=== PATIENT | male | born 1935 | race Caucasian/White ===

== ENCOUNTER → 2017-04-10 | Day surgery (SDC) | payer OTHER ==
[~2017-04-10] VITALS: Ht 177.8 cm; Wt 117.9 kg
[~2017-04-10] MED LIST: ASPIRIN81 M1 PO; COZAAR25 M1 PO; JANUMET 500 MG-1 TAB PO; SYNTHROID RP0.1 MG PO; ZOCOR40 MG PO
--- NOTE | ~2017-04-10 | O ---
[place], [place] OPERATIVE NOTE NAME: WALKER MAXWELL UNIT #: [id number] ROOM: DOCTOR: SASKIA VALENTE MD BIRTHDATE: [birth year] DOS: 04/10/2017 PREOPERATIVE DIAGNOSIS: Cataract, right eye. POSTOPERATIVE DIAGNOSIS: Cataract, right eye. OPERATION: Extracapsular cataract extraction by phacoemulsification with posterior chamber intraocular lens implantation, right eye. ANESTHESIA: Monitored standby. OPERATIVE FINDINGS AND PROCEDURE: 2% Xylocaine topical anesthetic gel was applied to the eye in the preop area. The patient was taken to the operating room and prepped and draped in the standard fashion for sterile intraocular surgery. A time out procedure was performed verifying correct patient, correct site and corrects lens with Suzy Valente M.D. The operating microscope was swung into position and the lid speculum was inserted. Using a Nita paracentesis blade, a paracentesis was made through clear cornea. Viscoelastic was used to fill the anterior chamber. Using a metal keratome a 2.4 mm self-sealing clear corneal cataract incision was made temporally at the limbus. Using a pre-bent 25 gauge cystotome needle, a standard continuous curvilinear capsulorrhexis was performed. The anterior capsule was removed with forceps. The lens nucleus was hydrodissected and phacoemulsified in the posterior chamber. Cortical material was removed with the irrigation aspiration hand piece and the posterior capsule was then polished with a curet under irrigation. The posterior chamber and capsular bag were filled with viscoelastic. A posterior chamber intraocular lens manufactured by: [employer], Model #[id number], and 16.0 diopters in strength were then inserted into the posterior chamber and within the capsular bag using the lens cartridge and injector system. Viscoelastic was removed using the irrigation aspiration handpiece. The anterior chamber was filled with balanced salt solution through the paracentesis. Both the paracentesis site and cataract incisions were hydrated with BSS and verified to be water-tight and self-sealing. Cefuroxime 1 mg/0.1 mL was injected into the anterior chamber through the paracentesis site. The incision checked to be water-tight using a Weck-Dawn sponge. The integrity of the cataract wound and ocular tension were checked. Lid speculum and drapes were removed. The patient was transferred from the operating room to the recovery room in satisfactory condition. [place], [place] OPERATIVE NOTE NAME: WALKER MAXWELL UNIT #: [id number] ROOM: DOCTOR: SASKIA VALENTE MD BIRTHDATE: [birth year] SASKIA VALENTE MD CM:OPRECORD:OPERATIVE NOTE [id number] SASKIA VALENTE MD 04/10/17 0825 interface
[2017-04-10 07:25] VITALS: BP 135/70
[2017-04-10 07:54] VITALS: BP 140/74
[2017-04-10 08:09] VITALS: BP 126/73
[2017-04-10 08:24] VITALS: BP 144/76
== END | disposition home or self-care (01) ==
LOC: SDC 04-04 13:15
DX: H26.9 Unspecified cataract (principal); I10 Essential (primary) hypertension; E03.9 Hypothyroidism, unspecified; R32 Unspecified urinary incontinence; E11.9 Type 2 diabetes mellitus without complications; E78.5 Hyperlipidemia, unspecified; Z85.46 Personal history of malignant neoplasm of prostate; Z79.899 Other long term (current) drug therapy; E66.9 Obesity, unspecified; Z90.79 Acquired absence of other genital organ(s); Z68.37 Body mass index [BMI] 37.0-37.9, adult

== ENCOUNTER → 2017-05-08 | Day surgery (SDC) | payer OTHER ==
[~2017-05-08] VITALS: Ht 177.8 cm; Wt 117.9 kg
--- NOTE | ~2017-05-08 | WILSON ---
[place], [place] CATARACT EXTRACTION [facility]LL [id number] UNIT #: [id number] ROOM: DOCTOR: SASKIA RICHARDSON MD DATE: 05/08/17 PREOPERATIVE DIAGNOSIS: Cataract, left eye. POSTOPERATIVE DIAGNOSIS: Cataract, left eye. OPERATION: Extracapsular cataract extraction by phacoemulsification with posterior chamber intraocular lens implantation, left eye. ANESTHESIA: Monitored standby. OPERATIVE FINDINGS AND PROCEDURE: 2% Xylocaine topical anesthetic gel was applied to the eye in the preop area. The patient was taken to the operating room and prepped and draped in the standard fashion for sterile intraocular surgery. A time out procedure was performed verifying correct patient, correct site and corrects lens with Suzy Richardson M.D. The operating microscope was swung into position and the lid speculum was inserted. Using a paracentesis blade, a paracentesis was made through clear cornea. Viscoelastic was used to fill the anterior chamber. Using a metal keratome a 2.4 mm self-sealing clear corneal cataract incision was made temporally at the limbus. Using a pre-bent 25 gauge cystotome needle, a standard continuous curvilinear capsulorrhexis was performed. The anterior capsule was removed with forceps. The lens nucleus was hydrodissected and phacoemulsified in the posterior chamber. Cortical material was removed with the irrigation aspiration hand piece and the posterior capsule was then polished with a curet under irrigation. The posterior chamber and capsular bag were filled with viscoelastic. A posterior chamber intraocular lens manufactured by: [employer], Model #[id number], and 15.5 diopters in strength was then inserted into the posterior chamber and within the capsular bag using the lens cartridge and injector system. Viscoelastic was removed using the irrigation aspiration handpiece. The anterior chamber was filled with balanced salt solution through the paracentesis. Both the paracentesis site and cataract incisions were hydrated with BSS and verified to be water-tight and self-sealing. Cefuroxime 1 mg/0.1 mL was injected into the anterior chamber through the paracentesis site. The incision checked to be water-tight using a Weck-byron sponge. The integrity of the cataract wound and ocular tension were checked. Lid speculum and drapes were removed. One drop of Ocuflox was applied to the eye. The patient was transferred from the operating room to the recovery room in satisfactory condition. SASKIA MILES MD CM:OPRECORD:CATARACT EXTRACTION 22 22 SASKIA RICHARDSON MD 05/08/171822 FRANKY [email or web address]
[2017-05-08 08:57] VITALS: BP 132/70
[2017-05-08 09:50] VITALS: BP 127/64
[2017-05-08 10:05] VITALS: BP 138/78
[2017-05-08 10:20] VITALS: BP 133/67
== END | disposition home or self-care (01) ==
LOC: SDC 05-02 12:30
DX: H26.9 Unspecified cataract (principal); I10 Essential (primary) hypertension; E03.9 Hypothyroidism, unspecified; E78.5 Hyperlipidemia, unspecified; Z98.890 Other specified postprocedural states

== ENCOUNTER 2019-08-13 19:54 | Inpatient (IN) | payer OTHER ==
[~2019-08-13] VITALS: Ht 175.2 cm; Wt 121.6 kg
--- NOTE | ~2019-08-13 | EKG ---
[place], [place] ELECTROCARDIOGRAM REPORT NAME: WALKER MAXWELL UNIT #: [id number] ROOM: 422 DOCTOR: LAURIE DRAFT REPORT BIRTHDATE: [birth year] [facility] Test Date: 2019-08-13 Test Time: 20:35:43 Pat Name: WALKER MAXWELL Department: Room: 422 Gender: M Photographic Technician: : [id number] Requested By: KAREN RAMESH PA-C Order Number: [id number] Reading MD: Hal Villa MD Measurements Intervals [place] Rate: 106 P: 56 MA: 201 QRS: -20 QRSD: 135 T: 11 QT: 318 QTc: 423 Interpretive Statements Sinus tachycardia Right bundle branch block Electronically Signed On 08-14-2019 5:46:39 PDT by Hal Villa MD CM:EKGRPT:ELECTROCARDIOGRAM REPORT [id number] KAREN RAMESH PA-C EPIPHANY DRAFT REPORT KAREN RAMESH PA-C
[2019-08-13 19:55] VITALS: BP 145/77
[2019-08-13] MEDS ORDERED: SIMVASTATIN40 MG PO (20:30)
[2019-08-13] MEDS ORDERED: JANUMET 50-1,01 EACH PO (20:30)
[2019-08-13] MEDS ORDERED: METOPROLOL SUCC50 M1 PO (20:31)
[2019-08-13] MEDS ORDERED: LEVOTHYROXINE100 MC1 PO (20:31)
[2019-08-13] MEDS ORDERED: LOSARTAN-HCTZ1 EAC1 PO (20:31)
[2019-08-13 21:16] LABS: ACT PARTIAL THROMBO TIME 30.3 SECONDS (20.0-32.1)
[2019-08-13 21:35] LABS: ALBUMIN 3.3 gm/dl (3.1-4.5); ALKALINE PHOSPHATASE 66 U/L (45-117); BUN 25 mg/dl (7-24); CHLORIDE 102 mmol/L (98-107); LIPASE 1133 U/L (73-393); POTASSIUM 3.9 mmol/L (3.5-5.1); SGOT/AST 10 IU/L (3-35); SGPT/ALT 23 U/L (12-78); SODIUM 135 mmol/L (136-145); TOTAL PROTEIN 7.9 gm/dL (6.4-8.2)
[2019-08-13 21:36] LABS: TROPONIN I < 0.015 ng/ml (<0.045)
[2019-08-13 22:18] LABS: HEMATOCRIT 35.8 % (42.0-52.0); HEMOGLOBIN 11.6 g/dl (14.0-18.0); MEAN CELL VOLUME 97.3 fl (80.0-94.0); MEAN CORPUSCULAR HGB 31.5 pg (27.0-31.0); MEAN CORPUSCULAR HGB CONC 32.4 g/dl (33.0-37.0); MEAN PLATELET VOLUME 11.3 fl (9.6-12.3); PLATELET COUNT AUTOMATED 211 10*3/uL (130-400); RED BLOOD COUNT 3.68 10*6/uL (4.50-5.90); RED CELL DISTRI WIDTH 12.5 % (0-14.5); WHITE BLOOD COUNT 9.1 10*3/uL (4.8-10.8)
[2019-08-13 22:21] LABS: PLATELET SUFFICIENCY NORMAL (NORMAL); TOTAL CELLS COUNTED 100 #CELLS
[2019-08-13 22:22] LABS: POLYCHROMASIA SLIGHT
[2019-08-13 22:37] VITALS: BP 123/72
[2019-08-14 00:10] VITALS: BP 113/71
[2019-08-14 00:58] LABS: BILIRUBIN NEGATIVE (NEGATIVE); BLOOD NEGATIVE (NEGATIVE); CLARITY CLEAR (CLEAR); COLOR YELLOW (YELLOW); GLUCOSE NEGATIVE (NEGATIVE); KETONE NEGATIVE (NEGATIVE); LEUKO ESTERASE 1+ (NEGATIVE); NITRITE NEGATIVE (NEGATIVE); SPECIFIC GRAVITY <= 1.005 (1.005-1.030); UROBILINOGEN 0.2 E.U./dl (0.2-1.0)
[2019-08-14 01:04] LABS: RBC 0-2 rbc/hpf (0-2)
[2019-08-14 01:05] LABS: BACTERIA TRACE; WBC 41-50 wbc/hpf (0-5)
[2019-08-14 01:15] VITALS: BP 145/78
[2019-08-14 08:00] VITALS: BP 119/55
[2019-08-14 09:52] VITALS: BP 128/70
[2019-08-14 11:44] VITALS: BP 135/76
== END 2019-08-14 13:46 | disposition home health service (06) | DRG 638 ==
LOC: ED 19:54 → EDHOLD 08-14 00:53 → 4E 08-14 00:53
PROVIDERS: Physician Assistant; ADMIT Internal Medicine
DX: E11.621 Type 2 diabetes mellitus with foot ulcer (principal); E87.1 Hypo-osmolality and hyponatremia; E87.2 Acidosis; I87.2 Venous insufficiency (chronic) (peripheral); D53.9 Nutritional anemia, unspecified; I10 Essential (primary) hypertension; E78.5 Hyperlipidemia, unspecified; L97.519 Non-pressure chronic ulcer of other part of right foot with unspecified severity; E03.9 Hypothyroidism, unspecified; E11.65 Type 2 diabetes mellitus with hyperglycemia; E11.51 Type 2 diabetes mellitus with diabetic peripheral angiopathy without gangrene; Z66 Do not resuscitate; Z51.5 Encounter for palliative care; W18.30XA Fall on same level, unspecified, initial encounter; Y93.89 Activity, other specified; Y92.89 Other specified places as the place of occurrence of the external cause; Y99.8 Other external cause status

== ENCOUNTER 2020-12-08 19:13 | Inpatient (IN) | payer OTHER ==
[~2020-12-08] VITALS: Ht 177.8 cm; Wt 116.2 kg
[2020-12-08 08:40] VITALS: BP 129/57
[~2020-12-08 19:13] MED LIST changes: +JANUMET 50-1,01 EACH PO; +LEVOTHYROXINE100 MC1 PO; +LOSARTAN-HCTZ1 EAC1 PO; +METOPROLOL SUCC50 M1 PO; +SIMVASTATIN40 MG PO
[2020-12-08 19:16] VITALS: BP 116/52
[2020-12-08 19:39] LABS: HEMATOCRIT 30.2 % (42.0-52.0); MEAN CORPUSCULAR HGB 32.5 pg (27.0-31.0); MEAN CORPUSCULAR HGB CONC 32.8 g/dl (33.0-37.0); MEAN PLATELET VOLUME 10.8 fl (9.6-12.3); PLATELET COUNT AUTOMATED 254 10*3/uL (130-400); RED BLOOD COUNT 3.05 10*6/uL (4.50-5.90); RED CELL DISTRI WIDTH 13.9 % (0-14.5); WHITE BLOOD COUNT 14.6 10*3/uL (4.8-10.8)
[2020-12-08 20:00] LABS: ALBUMIN 3.4 gm/dl (3.1-4.5); CREATININE 1.39 mg/dL (0.70-1.30); POTASSIUM 4.1 mmol/L (3.5-5.1); TOTAL PROTEIN 7.3 gm/dL (6.4-8.2)
[2020-12-08 20:11] LABS: PLATELET SUFFICIENCY NORMAL (NORMAL); TOTAL CELLS COUNTED 100 #CELLS
[2020-12-08 20:56] LABS: BILIRUBIN Negative (Negative); BLOOD 1+ (Negative); CLARITY Clear (Clear); COLOR Yellow (Yellow); GLUCOSE Negative (Negative); KETONE Negative (Negative); LEUKO ESTERASE 2+ (Negative); NITRITE Negative (Negative); SPECIFIC GRAVITY 1.015 (1.001-1.030)
[2020-12-08 21:23] LABS: WBC 16-20 wbc/hpf (0-5)
[2020-12-08 21:24] LABS: BACTERIA 1+
[2020-12-09 05:00] LABS: ALBUMIN 3.1 gm/dl (3.1-4.5); ALKALINE PHOSPHATASE 71 U/L (45-117); BUN 33 mg/dl (7-24); CHLORIDE 106 mmol/L (98-107); CREATININE 1.28 mg/dL (0.70-1.30); POTASSIUM 4.1 mmol/L (3.5-5.1); SGOT/AST 7 IU/L (3-35); SGPT/ALT 19 U/L (12-78); SODIUM 139 mmol/L (136-145); TOTAL PROTEIN 6.7 gm/dL (6.4-8.2)
[2020-12-09 06:02] VITALS: BP 125/42
[2020-12-09 06:17] LABS: ACT PARTIAL THROMBO TIME 26.4 SECONDS (20.0-32.1)
[2020-12-09] MEDS ORDERED: PLAVIX75 M1 PO (06:21)
[2020-12-09] MEDS ORDERED: K-TAB20 MEQ PO (06:21)
[2020-12-09] MEDS ORDERED: GLIPIZIDE5 MG PO (06:22)
[2020-12-09] MEDS ORDERED: GLUCOPHAGE1000 MG PO (06:22)
[2020-12-09] MEDS ORDERED: FUROSEMIDE40 MG PO (06:22)
[2020-12-09 07:02] LABS: BASO % 0.1 % (0.0-1.0); HEMATOCRIT 29.2 % (42.0-52.0); LYMPH # 0.9 10*3/uL (1.3-4.4); LYMPH % 5.8 % (27.0-41.0); MEAN CORPUSCULAR HGB 32.2 pg (27.0-31.0); MEAN CORPUSCULAR HGB CONC 31.8 g/dl (33.0-37.0); MEAN PLATELET VOLUME 11.8 fl (9.6-12.3); MONO # 1.4 10*3/uL (0.1-1.0); MONO % 8.5 % (3.0-9.0); NEUT # 13.5 10*3/uL (2.3-7.9); NEUT % 83.9 % (47.0-73.0); PLATELET COUNT AUTOMATED 236 10*3/uL (130-400); RED BLOOD COUNT 2.89 10*6/uL (4.50-5.90); RED CELL DISTRI WIDTH 14.6 % (0-14.5); WHITE BLOOD COUNT 16.1 10*3/uL (4.8-10.8)
[2020-12-09 12:00] VITALS: BP 120/73
[2020-12-09 16:00] VITALS: BP 116/60
[2020-12-09 20:00] VITALS: BP 115/38
[2020-12-10] VITALS: BP 149/64
[2020-12-10 06:25] LABS: BUN 25 mg/dl (7-24); CHLORIDE 105 mmol/L (98-107); CREATININE 1.19 mg/dL (0.70-1.30); POTASSIUM 4.2 mmol/L (3.5-5.1); SODIUM 139 mmol/L (136-145)
[2020-12-10 06:53] LABS: BASO % 0.2 % (0.0-1.0); EOS % 0.3 % (1.0-4.0); HEMATOCRIT 30.3 % (42.0-52.0); LYMPH # 0.7 10*3/uL (1.3-4.4); LYMPH % 6.6 % (27.0-41.0); MEAN CELL VOLUME 101.7 fl (80.0-94.0); MEAN CORPUSCULAR HGB 32.2 pg (27.0-31.0); MEAN CORPUSCULAR HGB CONC 31.7 g/dl (33.0-37.0); MEAN PLATELET VOLUME 11.3 fl (9.6-12.3); MONO # 1.2 10*3/uL (0.1-1.0); MONO % 11.3 % (3.0-9.0); NEUT # 8.2 10*3/uL (2.3-7.9); NEUT % 79.8 % (47.0-73.0); PLATELET COUNT AUTOMATED 231 10*3/uL (130-400); RED BLOOD COUNT 2.98 10*6/uL (4.50-5.90); RED CELL DISTRI WIDTH 14.5 % (0-14.5); WHITE BLOOD COUNT 10.3 10*3/uL (4.8-10.8)
[2020-12-10 08:00] VITALS: BP 134/64
[2020-12-10 12:00] VITALS: BP 138/72
[2020-12-10 16:00] VITALS: BP 149/61
[2020-12-10 20:00] VITALS: BP 119/87
[2020-12-11] VITALS: BP 151/71
[2020-12-11 06:26] LABS: BUN 19 mg/dl (7-24); CHLORIDE 103 mmol/L (98-107); CREATININE 0.95 mg/dL (0.70-1.30); POTASSIUM 4.1 mmol/L (3.5-5.1); SODIUM 139 mmol/L (136-145)
[2020-12-11 06:41] LABS: BASO % 0.3 % (0.0-1.0); EOS # 0.2 10*3/uL (0.0-0.4); EOS % 2.3 % (1.0-4.0); HEMATOCRIT 30.9 % (42.0-52.0); LYMPH # 1.5 10*3/uL (1.3-4.4); LYMPH % 21.3 % (27.0-41.0); MEAN CELL VOLUME 99.7 fl (80.0-94.0); MEAN CORPUSCULAR HGB 32.3 pg (27.0-31.0); MEAN CORPUSCULAR HGB CONC 32.4 g/dl (33.0-37.0); MEAN PLATELET VOLUME 11.3 fl (9.6-12.3); MONO % 14.4 % (3.0-9.0); NEUT # 4.1 10*3/uL (2.3-7.9); NEUT % 60.1 % (47.0-73.0); PLATELET COUNT AUTOMATED 237 10*3/uL (130-400); RED CELL DISTRI WIDTH 14.1 % (0-14.5); WHITE BLOOD COUNT 6.9 10*3/uL (4.8-10.8)
[2020-12-11 08:00] VITALS: BP 152/70
[2020-12-11 12:00] VITALS: BP 134/68
[2020-12-11 16:00] VITALS: BP 121/62
[2020-12-11 20:00] VITALS: BP 142/84
[2020-12-12] VITALS: BP 132/62
[2020-12-12 08:00] VITALS: BP 102/62
[2020-12-12] MEDS ORDERED: CIPRO250 MG PO (11:06)
[2020-12-12 12:00] VITALS: BP 133/63
== END 2020-12-12 15:09 | DRG 871 ==
LOC: ED 19:13 → 5E 21:31 → EDHOLD 21:31 → 5E 12-09 07:51
PROVIDERS: Family Medicine; Hospitalist; Internal Medicine; ADMIT Internal Medicine; ATTEND Internal Medicine
PROC: 0HBMXZZ Excision of Right Foot Skin, External Approach (ICD-10-PCS; principal; 2020-12-09)
DX: A41.9 Sepsis, unspecified organism (principal); N17.0 Acute kidney failure with tubular necrosis; E87.2 Acidosis; E44.0 Moderate protein-calorie malnutrition; N39.0 Urinary tract infection, site not specified; D53.9 Nutritional anemia, unspecified; Z66 Do not resuscitate; Z51.5 Encounter for palliative care; R65.20 Severe sepsis without septic shock; E11.42 Type 2 diabetes mellitus with diabetic polyneuropathy; E11.621 Type 2 diabetes mellitus with foot ulcer; E11.65 Type 2 diabetes mellitus with hyperglycemia; L97.519 Non-pressure chronic ulcer of other part of right foot with unspecified severity; Z20.822 Contact with and (suspected) exposure to COVID-19; B96.4 Proteus (mirabilis) (morganii) as the cause of diseases classified elsewhere; I10 Essential (primary) hypertension; E78.2 Mixed hyperlipidemia; E03.9 Hypothyroidism, unspecified; N18.9 Chronic kidney disease, unspecified; E11.22 Type 2 diabetes mellitus with diabetic chronic kidney disease; Z82.3 Family history of stroke; Z68.36 Body mass index [BMI] 36.0-36.9, adult; Z79.899 Other long term (current) drug therapy

== ENCOUNTER 2022-11-12 17:10 | Inpatient (IN) | payer OTHER ==
[~2022-11-12] VITALS: Ht 177.8 cm; Wt 102.2 kg
[~2022-11-12 17:10] MED LIST changes: +ACCUNEB 0.1.25 MG/1 INH; +AQUAPHOR396 GM T; +BREO ELLIPTA 11 EACH INH; +CIPRO250 MG PO; +CYMBALTA30 MG PO; +DOXYCYCLINE HY100 M3 PO; +DOXYCYCLINE MO100 MG PO; +FUROSEMIDE40 MG PO; +GLIPIZIDE5 MG PO; +GLUCOPHAGE1000 MG PO; +IRON325 M1 PO; +JANUVIA100 MG PO; +K-TAB20 MEQ PO; +LOSARTAN POTAS100 M1 PO; +MIRALAX17 GM PO; +PLAVIX75 M1 PO; +TYLENOL EXTRA500 M2 PO; +VITAMIN B121000 MC1 PO; +VITAMIN D350 MC2 PO; +[UNRECOGNIZED DRUG - OTHER] PO
[2022-11-12 17:48] VITALS: BP 130/66
[2022-11-12 20:00] VITALS: BP 143/66
[2022-11-13] VITALS: BP 143/74
[2022-11-13 08:00] VITALS: BP 99/78
[2022-11-13 12:00] VITALS: BP 110/56
[2022-11-13 16:00] VITALS: BP 93/58
[2022-11-13 20:00] VITALS: BP 93/55
[2022-11-14] VITALS: BP 96/44
== END 2022-11-14 03:50 | DRG 682 ==
LOC: 5E 17:10
PROVIDERS: ADMIT Internal Medicine; ATTEND Internal Medicine
DX: N17.0 Acute kidney failure with tubular necrosis (principal); E43 Unspecified severe protein-calorie malnutrition; J18.9 Pneumonia, unspecified organism; J96.00 Acute respiratory failure, unspecified whether with hypoxia or hypercapnia; E87.1 Hypo-osmolality and hyponatremia; M84.454A Pathological fracture, pelvis, initial encounter for fracture; E83.42 Hypomagnesemia; R74.8 Abnormal levels of other serum enzymes; D72.829 Elevated white blood cell count, unspecified; D75.839 Thrombocytosis, unspecified; J39.8 Other specified diseases of upper respiratory tract; E11.649 Type 2 diabetes mellitus with hypoglycemia without coma; E78.5 Hyperlipidemia, unspecified; I10 Essential (primary) hypertension; Z51.5 Encounter for palliative care; Z85.46 Personal history of malignant neoplasm of prostate; Z68.32 Body mass index [BMI] 32.0-32.9, adult